=== PATIENT | female | born 1945 | race Caucasian/White ===

== ENCOUNTER 2018-12-10 09:42 | Day surgery (SDC) | payer MEDICARE, BC ==
[2018-12-10] VITALS (10 sets, daily range): BP systolic 97–189; BP diastolic 56–75; PULSE 48–55; TEMP 98
[~2018-12-10] VITALS: Ht 162.6 cm; Wt 58.1 kg
[2018-12-10 10:40] LABS: HEMOGLOBIN 12.3 g/dl (12.5-16.0); MEAN CELL VOLUME 90 fl (80.0-100.0); MEAN CORPUSCULAR HEMOGLOBIN 30 pg (27.0-31.0); MEAN CORPUSCULAR HGB CONC 33 g/dl (33.0-37.0); MEAN PLATELET VOLUME 10.5 fl (7.4-10.4); PLATELET COUNT 236 K/mm3 (130-400); RED BLOOD COUNT 4.09 M/mm3 (4.10-5.30); REDCELL DISTRIBUTION WIDTH-CV 13.1 % (11.5-14.5)
[2018-12-10 10:43] LABS: HEMATOCRIT 36.8 % (37.0-47.0)
[2018-12-10 10:50] LABS: PROTHROMBIN TIME 11.3 SECONDS (9.7-12.8)
[2018-12-10] MEDS ORDERED: PROZAC40 MG PO (10:56)
[2018-12-10 10:57] LABS: CALCIUM 9.6 mg/dL (8.4-10.2); CREATININE, serum 1.51 (0.52-1.25); POTASSIUM 4.5 mmol/L (3.4-5.0)
[2018-12-10] MEDS ORDERED: PRILOSEC 20MG20 MG PO (11:12)
[2018-12-10] MEDS ORDERED: HCTZ 25MG TAB25 MG PO (11:13)
[2018-12-10] MEDS ORDERED: SYNTHROID0.075 MG/T PO (11:13)
[2018-12-10] MEDS ORDERED: ZESTRIL40 MG PO (11:14)
[2018-12-10] MEDS ORDERED: ZOCOR 40MG40 MG PO (11:14)
[2018-12-10] MEDS ORDERED: GLUCOTROL10 MG PO (11:15)
[2018-12-10] MEDS ORDERED: GLUCOPHAGE500 MG/TAB PO (11:15)
[2018-12-10] MEDS ORDERED: TOPROL XL 50MG50 MG PO (11:17)
[2018-12-10] MEDS ORDERED: ASPIRIN 81M81 MG/TA2 PO (11:18)
[2018-12-10] MEDS ORDERED: NITROSTAT0.4 MG/TAB SL (11:18)
[2018-12-10] MEDS ORDERED: KRILL OIL 3001 EACH PO (11:19)
[2018-12-10] MEDS ORDERED: LUTEIN6 MG PO (11:20)
[2018-12-10] MEDS ORDERED: COD LIVER OIL1 CAP PO (11:21)
[2018-12-10] MEDS ORDERED: EMERGEN-C 1,01000 MG PO (11:22)
[2018-12-10] MEDS ORDERED: BENADRYL25 M2 PO (11:23)
[2018-12-10] MEDS ORDERED: SUDAFED 12 HOU120 MG PO (11:25)
[2018-12-10] MEDS ORDERED: ONE DAILY MULTI1 TA1 PO (11:26)
--- NOTE | 2018-12-10 12:05 | NUR ---
pt to procedure,report to ROBERTO Muniz.
--- NOTE | 2018-12-10 12:38 | NUR ---
SEE MEREGE REPORT FOR ALL MEDICATION GILMAN. TIMES, AND INTRA AND POST PROCEDURE ASSESSMENT.
--- NOTE | 2018-12-10 16:35 | NUR ---
Discharge instructions given to pt.Pt verbalizes understanding.INT removed,catheter tip intact.
--- NOTE | 2018-12-10 17:00 | NUR ---
pT ESCORTED OUT VIA WHEELCHAIR BY STUDENT NURSE.
== END 2018-12-10 17:23 | disposition home or self-care (01) ==
LOC: COL.CAR 09:42
PROVIDERS: Internal Medicine Interventional Cardiology
DX: R07.89 Other chest pain (principal); R94.39 Abnormal result of other cardiovascular function study; I10 Essential (primary) hypertension; E11.9 Type 2 diabetes mellitus without complications; E78.5 Hyperlipidemia, unspecified; Z79.84 Long term (current) use of oral hypoglycemic drugs; Z82.49 Family history of ischemic heart disease and other diseases of the circulatory system; Z87.891 Personal history of nicotine dependence
CPT/HCPCS: J1644; J2250; J3010; Q9967

== ENCOUNTER → 2021-09-12 | Outpatient (CLI) | payer MEDICARE, BC ==
[~2021-09-12] MED LIST: ASPIRIN 81M81 MG/TA2 PO; BENADRYL25 M2 PO; COD LIVER OIL1 CAP PO; EMERGEN-C 1,01000 MG PO; GLUCOPHAGE500 MG/TAB PO; GLUCOTROL10 MG PO; HCTZ 25MG TAB25 MG PO; KRILL OIL 3001 EACH PO; LUTEIN6 MG PO; NITROSTAT0.4 MG/TAB SL; ONE DAILY MULTI1 TA1 PO; PRILOSEC 20MG20 MG PO; PROZAC40 MG PO; SUDAFED 12 HOU120 MG PO; SYNTHROID0.075 MG/T PO; TOPROL XL 50MG50 MG PO; ZESTRIL40 MG PO; ZOCOR 40MG40 MG PO
== END ==
LOC: COL.RAD 12:25
DX: I50.32 Chronic diastolic (congestive) heart failure (principal); R89.9 Unspecified abnormal finding in specimens from other organs, systems and tissues
CPT/HCPCS: A9540; A9567

== ENCOUNTER 2021-11-18 05:57 | Inpatient (IN) | payer MEDICARE, BC ==
[2021-11-18] VITALS (9 sets, daily range): BP systolic 118–143; BP diastolic 29–59; PULSE 58–76; TEMP 97.9–98.6
[~2021-11-18] VITALS: Ht 162.6 cm; Wt 54.7 kg
[~2021-11-18 05:57] MED LIST changes: +PROZAC 20MG20 MG PO; -PROZAC40 MG PO; +ZESTRIL 5MG5 MG PO; -ZESTRIL40 MG PO
--- NOTE | 2021-11-18 08:45 | NUR ---
Patient arrived via EMS from [facility]. Report received from RN at the facility, as well as EMS. Patient appears to be stable at this time and does not have any complaint. Independent in the room, gait is steady and patient denies any dizziness, SOB, chest pain.
[2021-11-18] MEDS ORDERED: FERROUSAL325 MG PO (10:32)
[2021-11-18] MEDS ORDERED: PROTONIX 40MG T40 MG PO (10:33)
[2021-11-18] MEDS ORDERED: SENNA-LAX8.6 MG PO (10:34)
[2021-11-18] MEDS ORDERED: ZYRTEC 10MG10 MG PO (10:34)
[2021-11-18] MEDS ORDERED: IMDUR 60MG60 MG/TAB PO (10:35)
[2021-11-18] MEDS ORDERED: CRESTOR5 MG PO (10:36)
[2021-11-18] MEDS ORDERED: PLAVIX 75MG TAB75 MG PO (10:36)
[2021-11-18] MEDS ORDERED: OMEGA-3 1000 MG1 CAP PO (10:37)
--- NOTE | 2021-11-18 14:52 | NUR ---
Patient has done well so far; Placed on clear liquid diet and PCT assisted w/ ordering a tray. This RN is currently waiting for orders to be placed by the hospitalist.
[2021-11-18 17:05] LABS: BASO % 0.4 % (0.0-2.0); EOS # 0.2 K/mm3 (0.0-0.7); GRAN # 5.3 K/mm3 (1.4-6.5); GRAN % 69.1 % (42.2-75.2); LYMPH # 1.4 K/mm3 (1.2-3.4); LYMPH % 18.4 % (20.0-51.0); MEAN CELL VOLUME 94 fl (80.0-100.0); MEAN CORPUSCULAR HGB CONC 31 g/dl (33.0-37.0); MEAN PLATELET VOLUME 10.6 fl (7.4-10.4); MONO # 0.7 K/mm3 (0.1-0.6); MONO % 8.7 % (1.7-9.3); PLATELET COUNT 230 K/mm3 (130-400)
[2021-11-18 17:08] LABS: HEMATOCRIT 18.8 % (37.0-47.0); HEMOGLOBIN 5.9 g/dl (12.5-16.0); MEAN CORPUSCULAR HEMOGLOBIN 30 pg (27-31)
[2021-11-18 17:21] LABS: ALANINE AMINOTRANSFERASE 16 U/L (0-55); ALBUMIN 3.3 gm/dL (3.4-4.8); ALKALINE PHOSPHATASE 46 U/L (40-150); ANION GAP 11 mmol/L (7-16); AST,SGOT 18 U/L (5-34); BILIRUBIN,TOTAL 0.3 mg/dL (0.2-1.2); BLOOD UREA NITROGEN 76 mg/dL (10-20); CALCIUM 8.2 mg/dL (8.4-10.2); CARBON DIOXIDE 16 mmol/L (23-31); CHLORIDE 109 mmol/L (98-107); CREATININE, serum 1.85 mg/dL (0.57-1.11); GLUCOSE 181 mg/dL (70-99); SODIUM 136 mmol/L (136-145); TOTAL PROTEIN 6.1 gm/dL (6.2-8.1)
[2021-11-18 17:59] LABS: TROPONIN-I < 0.010 ng/mL (0.00-0.033)
--- NOTE | 2021-11-18 18:31 | NUR ---
Patient to receive blood, 2nd IV started in right forearm.
--- NOTE | 2021-11-18 20:00 | NUR ---
Patient is resting in bed, alert and oriented x 4. VSS. Denies chest pain. Telemetry in place, NSR. Receiving NS 75ML/HR. Consent for blood transfusion was signed. Preparing to give 1 unit o blood. Assessment completed, medications provided. No other needs at this time, call light within reach.
[2021-11-19] VITALS (18 sets, daily range): BP systolic 125–167; BP diastolic 38–67; PULSE 52–89; TEMP 97.7–98.1
[2021-11-19 03:27] LABS: HEMOGLOBIN 7.7 g/dl (12.5-16.0)
--- NOTE | 2021-11-19 06:27 | NUR ---
Patient HG came back 7.7. An additional unit of blood is been transfusing. Patient stable. No further complains of chest pain. Pt states her chest pain is related to her anxiety. Report will be given to day RN.
[2021-11-19 06:47] LABS: BASO # 0.1 K/mm3 (0.0-0.2); EOS # 0.4 K/mm3 (0.0-0.7); EOS % 5.7 % (0.0-4.0); GRAN # 4.9 K/mm3 (1.4-6.5); GRAN % 66.5 % (42.2-75.2); LYMPH # 1.3 K/mm3 (1.2-3.4); LYMPH % 17.3 % (20.0-51.0); MEAN CELL VOLUME 91 fl (80.0-100.0); MEAN CORPUSCULAR HGB CONC 32 g/dl (33.0-37.0); MEAN PLATELET VOLUME 10.7 fl (7.4-10.4); MONO # 0.7 K/mm3 (0.1-0.6); MONO % 9.4 % (1.7-9.3); PLATELET COUNT 216 K/mm3 (130-400); RED BLOOD COUNT 2.66 M/mm3 (4.10-5.30); REDCELL DISTRIBUTION WIDTH-CV 16.5 % (11.5-14.5)
[2021-11-19 06:51] LABS: CALCIUM 8.2 mg/dL (8.4-10.2); CREATININE, serum 1.72 mg/dL (0.57-1.11); POTASSIUM 4.4 mmol/L (3.5-4.5)
[2021-11-19 06:52] LABS: HEMATOCRIT 24.3 % (37.0-47.0); HEMOGLOBIN 7.7 g/dl (12.5-16.0); MEAN CORPUSCULAR HEMOGLOBIN 29 pg (27-31)
--- NOTE | 2021-11-19 08:03 | NUR ---
Blood transfusion completed. VSS. New bag of IV fluids hung as ordered per OCT. Dr. Chand consulted on this patient, plan is for an EGD to be done. Patient has been NPO since midnight. Patient states she feels more alert now that she has received blood. Overall, patient feels better.
--- NOTE | 2021-11-19 09:30 | NUR ---
Shift assessment completed. Pt remains in bed, NPO for EGD procedure. HR:70, RR:18. Telemetry on. INT right and left forearm without redness, edema or discharge. Pt scores pain at 0 out of 10. Withhold medication until after the EGD procedure.
--- NOTE | 2021-11-19 10:13 | NUR ---
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 [employer] offered prayer and God's blessings and will follow up while patient is at our hospital.
--- NOTE | 2021-11-19 10:26 | NUR ---
Social Work student met with patient to discuss discharge planning. Patient stated that she has recently relocated to [place], [place], and she lives with her daughter, Michelle(ph#[phone]), and son-in-law, Boubacar(ph#[phone]). Patient stated that her , Bowen, recently . Patient sees NOHELIA Lezama for primary care. Patient receives her medications from [facility] in [place], [place] with no cost difficulty. Patient does not utilize any durable medical equiptment while at home nor any oxygen. Patient states that she does occasionally need help with her ADL's, but says, "If I do need the help, I have it nearby." Patient states she has filled out durable power of erisa attorney paperwork, but unsure if it was specifically for health care, so SW sought to find next of kin. Patient is , has one daughter, Michelle, and one sibling, Zonia, who lives in [place]. Patient is comfortable at this time discharging home when ready. No further needs at this time. Discharge plan: Home
--- NOTE | 2021-11-19 16:01 | NUR ---
The pond sawyer notified ALIYAH that the patient's daughter arrived and would like to speak to ALIYAH. ALIYAH and SW student met with the patient and her daughter, Michelle. Michelle was interested in knowing more about home health. ALIYAH educated her about home health and it's benefits. Michelle reports that the patient is not home bound and is still active. She drives to places. Michelle would still be interested in the patient continuing PT/OT upon discharge though. PT/OT have been ordered. Michelle would be interested in home health or outpatient therapy. Will await therapy's recommendations.
[2021-11-19 18:33] LABS: HEMATOCRIT 26.3 % (37.0-47.0); HEMOGLOBIN 8.6 g/dl (12.5-16.0)
--- NOTE | 2021-11-19 18:42 | NUR ---
Patient has done well since EGD. Remains A&Ox4, and independent. Bowel prep started at approx. 1835. Patient's daughter is at the bedside. Questions welcomed and answered.
--- NOTE | 2021-11-19 22:43 | NUR ---
PT ALERT AND ORIENTED UPON ENTRY EARLIER THIS EVENING. CALM AND VERY COOPERATIVE. FINISHED THE BOWEL PREP AND HAS BEEN UP 2-3 TIMES TO USE BSC. STOOL STILL APPEARS A BLACK COLORS, BUT IS BEGINNING TO LIGHTEN. STOOL IS MAINLY LOOSE, A FEW SMALL SOLID STOOLS STILL. WILL CONTINUE TO MONITOR. PT WILL BE NPO AFTER MIDNIGHT, HAS BEEN ON CLEAR LIQUIDS DURING THE DAY TODAY. PT DENIES ACUTE PAIN. SHIFT ASSESSMENT PERFORMED. ABDOMEN FEELS SOFT AND NON DISTENDED. NS RUNNING AT 75 ML/HR. NO EDEMA NOTED AND LUNG SOUNDS ARE CLEAR. MEDICATIONS ADMINISTERED AND EDUCATION PROVIDED. WILL CONTINUE TO MONITOR PT OUTPUT. VITALS SIGNS STABLE. PT HR RANGES FROM NSR TO SINUS FREDI. WILL CONTINUE TO MONITOR. NO CONCERNS AT THIS TIME.
[2021-11-20] VITALS (11 sets, daily range): BP systolic 104–169; BP diastolic 41–60; PULSE 50–84; TEMP 97.3–98.3
--- NOTE | 2021-11-20 05:12 | NUR ---
PT HAD CALM AND UNEVENTFUL NIGHT. REMAINS ALERT AND ORIENTED. RESTING CURRENTLY. CONTINUED TO HAVE WATERY, LOOSE STOOLS OVERNIGHT. 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 CONTINUING TO ASSESS STOOLS. PT HAS BEEN NPO SINCE MIDNIGHT. VITAL SIGNS AND BLOOD SUGARS STABLE. BP RUNS HIGHER FOR THIS PT. PT DENIES ACUTE PAIN. NO NEW CONCERNS AT THIS TIME. WILL CONTINUE TO MONITOR.
[2021-11-20 06:44] LABS: CALCIUM 8.3 mg/dL (8.4-10.2); CREATININE, serum 1.52 mg/dL (0.57-1.11)
--- NOTE | 2021-11-20 06:45 | NUR ---
Report received from Nel MEJIA and Charu MEJIA. Pt resting in bed. Bowel prep completed around 2100 last night. Commode emptied at this time of clear liquid stool. Denies needs. Continuing to monitor.
[2021-11-20 06:48] LABS: BASO # 0.1 K/mm3 (0.0-0.2); BASO % 0.9 % (0.0-2.0); EOS # 0.6 K/mm3 (0.0-0.7); EOS % 8.3 % (0.0-4.0); GRAN # 4.2 K/mm3 (1.4-6.5); LYMPH % 14.9 % (20.0-51.0); MEAN CELL VOLUME 88 fl (80.0-100.0); MEAN CORPUSCULAR HGB CONC 33 g/dl (33.0-37.0); MEAN PLATELET VOLUME 10.8 fl (7.4-10.4); MONO # 0.8 K/mm3 (0.1-0.6); MONO % 11.6 % (1.7-9.3); PLATELET COUNT 218 K/mm3 (130-400); RED BLOOD COUNT 3.01 M/mm3 (4.10-5.30); REDCELL DISTRIBUTION WIDTH-CV 16.7 % (11.5-14.5)
--- NOTE | 2021-11-20 07:30 | NUR ---
Shift assessment completed. Pt remains NPO for colonoscopy procedure. INT in left arm without discharge, bleeding or edema. Peripheral line on right arm no reddness or edema.
[2021-11-20 07:36] LABS: HEMATOCRIT 26.6 % (37.0-47.0); HEMOGLOBIN 8.7 g/dl (12.5-16.0); MEAN CORPUSCULAR HEMOGLOBIN 29 pg (27-31)
--- NOTE | 2021-11-20 08:20 | NUR ---
Pt off unit for colonoscopy at this time.
--- NOTE | 2021-11-20 09:30 | NUR ---
Pt remains in bed post colonoscopy procedure. VS Q15 minutes until 10 20am. No c/o pain. No N/V.
--- NOTE | 2021-11-20 10:00 | NUR ---
Reviewed assessment charted by student nurse and agree w/documentation. Pt A&Ox4. Up independently in room. Heart rate bradycardic 45-50 but rhythm regular, pt asymptomatic. Hospitalist aware and lb held this morning. Pt had colonoscopy this morning and back in room at 0915. Vitals remain stable and pt denies complaints. Tolerating PO intake well. Continuing to monitor.
--- NOTE | 2021-11-20 19:23 | NUR ---
Uneventful day. Pt rested in room w/o complaint. Denies needs at this time.
[2021-11-21 00:24] VITALS: BP 102/33; PULSE 66; TEMP 98.1
[2021-11-21 04:06] VITALS: BP 111/49; PULSE 83; TEMP 98.8
[2021-11-21 06:33] LABS: BASO # 0.1 K/mm3 (0.0-0.2); BASO % 0.8 % (0.0-2.0); EOS # 0.5 K/mm3 (0.0-0.7); EOS % 6.8 % (0.0-4.0); GRAN # 4.8 K/mm3 (1.4-6.5); GRAN % 68.1 % (42.2-75.2); LYMPH % 13.7 % (20.0-51.0); MEAN CELL VOLUME 92 fl (80.0-100.0); MEAN CORPUSCULAR HGB CONC 32 g/dl (33.0-37.0); MEAN PLATELET VOLUME 10.6 fl (7.4-10.4); MONO # 0.7 K/mm3 (0.1-0.6); MONO % 10.2 % (1.7-9.3); PLATELET COUNT 213 K/mm3 (130-400); RED BLOOD COUNT 2.81 M/mm3 (4.10-5.30); REDCELL DISTRIBUTION WIDTH-CV 16.7 % (11.5-14.5)
[2021-11-21 06:36] LABS: HEMATOCRIT 25.7 % (37.0-47.0); HEMOGLOBIN 8.2 g/dl (12.5-16.0); MEAN CORPUSCULAR HEMOGLOBIN 29 pg (27-31)
[2021-11-21 06:50] LABS: CALCIUM 7.8 mg/dL (8.4-10.2); CREATININE, serum 1.99 mg/dL (0.57-1.11); POTASSIUM 4.2 mmol/L (3.5-4.5)
[2021-11-21] MEDS ORDERED: COREG 3.123.125 MG/T PO (07:28)
[2021-11-21 08:05] VITALS: BP 133/55; PULSE 83; TEMP 98.2
[2021-11-21] MEDS ORDERED: PRINIVIL10 MG PO (09:22)
--- NOTE | 2021-11-21 09:51 | NUR ---
Assessment completed, alert/oriented, vital signs stable, denies pain or discmofort, hemaglobin stable >8 this morning, she is tolerating PO intake well, abd soft and non-tender and BS+, denies any further dark or bloody stools, heart RRR, lungs CTA/ no resp.difficulty noted, she is sitting up in bed eating breakfast and has taken morning meds, denies needs, will continue to monitor
--- NOTE | 2021-11-21 09:55 | NUR ---
The clinical team is ready to discharge the patient today. ALIYAH met with the patient to follow up about home health vs outpatient therapy. The patient would like ALIYAH to call her daughter about this. ALIYAH presented and read the IM form outloud to the patient. The patient verbalized understanding and of agreement to discharge today. She signed the form. ALIYAH student provided her with a copy. ALIYAH then contacted the patient's daughter, Michelle, to review the above. With the patient still being active in the community and not home bound, Michelle would like to pursue with outpatient therapy. She states that the patient used to go to [facility] for outpatient therapy and they would prefer to receive therapy there again. ALIYAH contacted Laura at [facility] Outpatient therapy and secured the patient a PT appointment on 11/27 at 1300. Laura states that they do not do OT, but that they can evaluate and work with the patient on any OT needs. ALIYAH notified the laborer ammunition assembly of the appointment. ALIYAH ramirez faxed the patient's orders to [facility]. The patient is to discharge back home with her daughter today, 11/21, with outpatient PT at [facility]. No additional needs at this time.
--- NOTE | 2021-11-21 12:26 | NUR ---
Discharge orders discussed with the patient, instructed to follow up with PCP/Gyno/GI/Cards and Physical therrapy as scheduled for her, instructed to take meds as prescribed/ and discussed all med changes, instructed to have labs drawn as ordered, IV and tele removed, leaving with daughter, STEWARD/STEWARDESS LOUNGE will escort her out the door
== END 2021-11-21 13:07 | disposition home or self-care (01) | DRG 394 ==
LOC: MEDICAL 05:57
PROVIDERS: Internal Medicine Gastroenterology; Physician Assistant; Student in an Organized Health Care Education/Training Program; ADMIT Internal Medicine
PROC: 0D798ZZ Dilation of Duodenum, Via Natural or Artificial Opening Endoscopic (ICD-10-PCS; principal; 2021-11-19 11:15)
PROC: 0DJD8ZZ Inspection of Lower Intestinal Tract, Via Natural or Artificial Opening Endoscopic (ICD-10-PCS; 2021-11-20)
DX: K55.9 Vascular disorder of intestine, unspecified (principal); K92.1 Melena; S32.591A Other specified fracture of right pubis, initial encounter for closed fracture; I50.32 Chronic diastolic (congestive) heart failure; I13.0 Hypertensive heart and chronic kidney disease with heart failure and stage 1 through stage 4 chronic kidney disease, or unspecified chronic kidney disease; N39.0 Urinary tract infection, site not specified; K31.5 Obstruction of duodenum; E44.0 Moderate protein-calorie malnutrition; E87.2 Acidosis; N17.9 Acute kidney failure, unspecified; Z66 Do not resuscitate; I25.10 Atherosclerotic heart disease of native coronary artery without angina pectoris; N18.9 Chronic kidney disease, unspecified; D64.9 Anemia, unspecified; E11.22 Type 2 diabetes mellitus with diabetic chronic kidney disease; E03.9 Hypothyroidism, unspecified; K21.9 Gastro-esophageal reflux disease without esophagitis; K44.9 Diaphragmatic hernia without obstruction or gangrene; I65.21 Occlusion and stenosis of right carotid artery; K57.30 Diverticulosis of large intestine without perforation or abscess without bleeding; K64.9 Unspecified hemorrhoids; R07.9 Chest pain, unspecified; K25.9 Gastric ulcer, unspecified as acute or chronic, without hemorrhage or perforation; Z79.02 Long term (current) use of antithrombotics/antiplatelets; Z79.82 Long term (current) use of aspirin; I25.2 Old myocardial infarction; Z87.891 Personal history of nicotine dependence; Z23 Encounter for immunization; Z68.20 Body mass index [BMI] 20.0-20.9, adult
CPT/HCPCS: 99222-AI; 99232-AI; 99233-AI; 99239; C1726; C9113; J0696; J1815; J2405; J2704; J2765; J7030; J7120; P9016